=== PATIENT | female | born 1960 | race Caucasian/White ===

== ENCOUNTER 2017-09-29 07:43 | Inpatient (IN) | payer OTHER ==
[~2017-09-29] VITALS: Ht 162.6 cm; Wt 94.0 kg
[~2017-09-29 07:43] MED LIST: ESTR2; ESTR2 PO; HYDR1TAB94 PO; IRON150C PO; LEVSOD50 PO; NAPR500 PO; OXYACE5T PO; PROM25 PO
[2017-09-29 08:28] LABS: BASOPHILS ABSOLUTE AUTO 0.02 K/mm3 (0.00-0.23); BASOPHILS PERCENT AUTO 0 % (0-2); EOSINOPHILS PERCENT AUTO 0 % (0-6); Hematocrit 38.8 % (33.0-51.0); IMMATURE GRAN ABSOLUTE AUTO 0.02 K/mm3 (0.00-0.10); IMMATURE GRAN PERCENT AUTO 0 % (0-1); LYMPHOCYTES ABSOLUTE AUTO 0.77 K/mm3 (0.84-5.20); LYMPHOCYTES PERCENT AUTO 12 % (21-46); MONOCYTES ABSOLUTE AUTO 0.66 K/mm3 (0.16-1.47); MONOCYTES PERCENT AUTO 11 % (4-13); Mean Corpuscular HGB 27.3 pg (26.0-34.0); Mean Corpuscular HGB Conc 33.5 g/dL (31.5-36.5); Mean Corpuscular Volume 82 fL (80-100); NEUTROPHILS ABSOLUTE AUTO 4.78 K/mm3 (1.96-9.15); NEUTROPHILS PERCENT AUTO 77 % (41-73); Platelet Count 302 K/mm3 (150-400); RDW Coefficient Variation 12.9 % (11.7-14.2); RDW Standard Deviation 38.8 fL (35.1-46.3); Red Blood Cell Count 4.76 M/mm3 (3.80-5.20); White Blood Cell Count 6.25 K/mm3 (4.00-11.30)
[2017-09-29 08:53] LABS: Alanine Aminotransfer (ALT/SGP 27 U/L (12-78); Albumin, Blood 3.4 g/dL (3.4-5.0); Albumin/Globulin Ratio 0.7 (0.8-1.8); Alk Phos 70 U/L (50-136); Anion Gap 8 mmol/L (6-16); Aspartate Aminotrans (AST/SGOT 17 U/L (12-37); Bilirubin, Total 0.5 mg/dL (0.1-1.0); Blood Urea Nitrogen 7 mg/dL (8-24); Bun/Creatinine Ratio 12.8 (12.0-20.0); CO2, Blood 26 mmol/L (21-32); Calcium, Blood 8.8 mg/dL (8.5-10.1); Chloride, Blood 100 mmol/L (98-108); Creatinine, Blood 0.55 mg/dL (0.40-1.00); Globulin, Blood 5.2 g/dL (2.2-4.0); Glomerular Filtration Rate >60 (60-); Glucose, Blood 147 mg/dL (70-99); Potassium, Blood 3.4 mmol/L (3.5-5.5); Sodium, Blood 134 mmol/L (136-145); Total Protein, Blood 8.6 g/dL (6.4-8.2); Troponin I <0.015 ng/mL (0.000-0.040)
[2017-09-29 20:55] LABS: Adenovirus Not Detected (NOT DETECT); Coronavirus 229E Not Detected (NOT DETECT); Coronavirus HKU1 Not Detected (NOT DETECT); Coronavirus NL63 Not Detected (NOT DETECT)
[2017-09-29 20:56] LABS: Bordetella pertussis Not Detected (NOT DETECT); Chlamydophila pneumoniae Not Detected (NOT DETECT); Coronavirus OC43 Not Detected (NOT DETECT); Human Metapneumovirus Not Detected (NOT DETECT); Human Rhinovirus/Enterovirus Not Detected (NOT DETECT); Influenza A/2009-H1 Not Detected (NOT DETECT); Influenza A/H1 Not Detected (NOT DETECT); Influenza A/H3 Not Detected (NOT DETECT); Influenza B Not Detected (NOT DETECT); Mycoplasma pneumoniae Not Detected (NOT DETECT); Parainfluenza Virus 1 Not Detected (NOT DETECT); Parainfluenza Virus 2 Not Detected (NOT DETECT); Parainfluenza Virus 3 Not Detected (NOT DETECT); Parainfluenza Virus 4 Not Detected (NOT DETECT); Respiratory Syncytial Virus Not Detected (NOT DETECT)
[2017-09-30 02:55] LABS: Influenza A Not Detected (NOT DETECT)
[2017-09-30 05:25] LABS: BASOPHILS ABSOLUTE AUTO 0.04 K/mm3 (0.00-0.23); BASOPHILS PERCENT AUTO 1 % (0-2); EOSINOPHILS ABSOLUTE AUTO 0.02 K/mm3 (0.00-0.68); EOSINOPHILS PERCENT AUTO 0 % (0-6); Hematocrit 35.7 % (33.0-51.0); Hemoglobin 11.8 g/dL (11.5-16.0); IMMATURE GRAN ABSOLUTE AUTO 0.09 K/mm3 (0.00-0.10); IMMATURE GRAN PERCENT AUTO 1 % (0-1); LYMPHOCYTES ABSOLUTE AUTO 0.93 K/mm3 (0.84-5.20); LYMPHOCYTES PERCENT AUTO 11 % (21-46); MONOCYTES ABSOLUTE AUTO 1.12 K/mm3 (0.16-1.47); MONOCYTES PERCENT AUTO 14 % (4-13); Mean Corpuscular HGB 27.4 pg (26.0-34.0); Mean Corpuscular HGB Conc 33.1 g/dL (31.5-36.5); Mean Corpuscular Volume 83 fL (80-100); Mean Platelet Volume 10.9 fL (9.1-12.4); NEUTROPHILS ABSOLUTE AUTO 6.01 K/mm3 (1.96-9.15); NEUTROPHILS PERCENT AUTO 73 % (41-73); Platelet Count 301 K/mm3 (150-400); RDW Coefficient Variation 13.2 % (11.7-14.2); RDW Standard Deviation 39.8 fL (35.1-46.3); White Blood Cell Count 8.21 K/mm3 (4.00-11.30)
[2017-09-30 05:54] LABS: Anion Gap 9 mmol/L (6-16); Blood Urea Nitrogen 4 mg/dL (8-24); CO2, Blood 23 mmol/L (21-32); Calcium, Blood 7.9 mg/dL (8.5-10.1); Chloride, Blood 101 mmol/L (98-108); Creatinine, Blood 0.44 mg/dL (0.40-1.00); Glomerular Filtration Rate >60 (60-); Glucose, Blood 158 mg/dL (70-99); Potassium, Blood 3.4 mmol/L (3.5-5.5); Sodium, Blood 133 mmol/L (136-145)
[2017-10-01] MEDS ORDERED: HYDROCODONE-HOMA5 ML PO (08:39)
[2017-10-01] MEDS ORDERED: IBUP600 PO (08:39)
== END 2017-10-01 10:42 | disposition home or self-care (01) | DRG 194 ==
LOC: ER 07:43 → MEDS 07:44 → ENPENDDIS 10-01 08:29 → MEDS 10-01 10:42
PROVIDERS: Emergency Medicine; Family Medicine
PROC: 3E0234Z Introduction of Serum, Toxoid and Vaccine into Muscle, Percutaneous Approach (ICD-10-PCS; principal; 2017-09-29)
DX: J18.9 Pneumonia, unspecified organism (principal); E87.1 Hypo-osmolality and hyponatremia; E66.01 Morbid (severe) obesity due to excess calories; E03.9 Hypothyroidism, unspecified; I10 Essential (primary) hypertension; R09.02 Hypoxemia; Z23 Encounter for immunization; M17.0 Bilateral primary osteoarthritis of knee; Z68.35 Body mass index [BMI] 35.0-35.9, adult
CPT/HCPCS: 36415; 71046; 71260; 80048; 80053; 83880; 84443; 84484; 85025; 87070; 87077; 87081; 87185; 87205; 87486; 87581; 87633; 87798; 93005; 93010; 94640; 94644; 94760; 99285; J0456; J0696; J7042; J7050; Q9967

== ENCOUNTER 2024-07-15 07:56 | Day surgery (SDC) | payer BC ==
[~2024-07-15] VITALS: Ht 161 cm; Wt 101.6 kg
[2024-07-15] VITALS (16 sets, daily range): BP systolic 103–143; BP diastolic 59–83
[~2024-07-15 07:56] MED LIST changes: +EUTHYROX50 MCG PO; +HYDROCODONE-HOMA5 ML PO; +IBUP600 PO; +OLMESARTAN-HCT1 EAC3 PO
[2024-07-15] MEDS ORDERED: Acetaminophen 500 MG Tab PO SCH ×2 (09:35→16:00)
[2024-07-15] MEDS ORDERED: Ropivacaine 0.5% HCl/Pf 123.125 MG,EPINEPHrine HCL 0.25 MG,Ketorolac Tromethamine 15 MG... INFIL SCH (09:35)
[2024-07-15] MEDS ORDERED: Lactated Ringer's 1,000 ML IV SCH ×2 (09:35→11:30)
[2024-07-15] MEDS ORDERED: CeFAZolin Sodium 2,000 MG in NS 100 ML IV SCH ×2 (09:35→20:00)
[2024-07-15] MEDS ORDERED: Tranexamic Acid 1,000 MG in NS 100 ML IV SCH (09:35)
[2024-07-15] MEDS ORDERED: Chlorhexidine Mouth Care 15 ML UDC MT SCH (09:35)
[2024-07-15] MEDS ORDERED: OxyCODONE HCL 10 MG TABCR PO SCH (09:35)
--- NOTE | 2024-07-15 10:42 | NUR ---
History, Chart, Medications and Allergies reviewed before start of procedure. Patient up to Ambulate independently. Gait steady. Pre-Op teaching done. Pt verbalizes understanding. Patient confirms NPO status and agrees with scheduled surgery. Patient reports completing Chlorhexadine shower X5 prior to admission to hospital. Surgical site prepped with 2% Chlorhexidine cloth wipe. Lungs clear T/O to Auscultation. Patient States Post-Procedure ride home has been arranged.
[2024-07-15] MEDS ORDERED: Midazolam HCl 1MG / ML 2ML Vial IV ONE (10:55)
[2024-07-15] MEDS ORDERED: Ondansetron HCl 2 MG / ML 2ML Vial IV PRN (11:30)
[2024-07-15] MEDS ORDERED: HYDROmorphone HCl/Pf 1MG SYR IV PRN (11:30)
[2024-07-15] MEDS ORDERED: Magnesium Hydroxide Conc 10 ML UDC PO PRN (11:30)
[2024-07-15] MEDS ORDERED: Promethazine HCl 25 MG Tab PO PRN (11:30)
[2024-07-15] MEDS ORDERED: Metoclopramide HCl 5MG / ML 2ML Vial IV PRN (11:30)
[2024-07-15] MEDS ORDERED: FLU VACC TS2024-25(6MOS UP)/PF 45 MCG/0.5 ML SYRINGE IM SCH (11:35)
[2024-07-15] MEDS ORDERED: HYDROcodone 5-APAP 325 TAB PO PRN (11:35)
[2024-07-15] MEDS ORDERED: DiphenhydrAMINE HCL 25 MG Cap PO PRN (11:35)
[2024-07-15] MEDS ORDERED: Bisacodyl 10 MG Supp PR PRN (11:40)
[2024-07-15] MEDS ORDERED: propofoL 150 ML IV ONE (11:51)
[2024-07-15] MEDS ORDERED: Midazolam HCl 1MG / ML 2ML Vial ONE (11:52)
[2024-07-15] MEDS ORDERED: Ketorolac Tromethamine 15mg Vial IV SCH (12:00)
[2024-07-15] MEDS ORDERED: Ketorolac Tromethamine 30mg Vial ONE (13:24)
[2024-07-15] MEDS ORDERED: Phenylephrine HCl 10mg/ml 1 ml Vial ONE (13:24)
[2024-07-15] MEDS ORDERED: ePHEDrine Sulfate 50 MG/ML 1ML Injection ONE (13:37)
[2024-07-15] MEDS ORDERED: FentaNYL Citrate 50 MCG/ML 2 ML Injection ONE (14:14)
[2024-07-15] MEDS ORDERED: HYDROmorphone HCl/Pf 1MG SYR ONE (14:19)
[2024-07-15] MEDS ORDERED: Acetaminophen 325 MG TABLET PO SCH (18:00)
--- NOTE | 2024-07-15 19:13 | NUR ---
SHIFT SUMMAROY POD0 L TKA, A/OX4, VSS, TOLERATING PO, PAIN WELL MANAGED, NO VOID THIS SHIFT BUT WAS STRAIGHT CATHED IN PACU, SHE DID NOT GET OOB BUT STILL HAD SOME RESIDUAL N/T IN HER FEET. DISCUSSED PLAN FOR TONIGHT AND THE MORNING AND PATIENT AGREEABLE TO IT. NO ACUTE EVENTS THIS SHIFT, CALL LIGHT IN REACH.
[2024-07-15] MEDS ORDERED: Docusate Sodium 100 MG Cap PO SCH (21:00)
[2024-07-16 00:04] VITALS: BP 125/75
[2024-07-16 04:14] VITALS: BP 118/76
[2024-07-16 05:16] LABS: BASOPHILS ABSOLUTE AUTO 0.04 K/mm3 (0.00-0.23); BASOPHILS PERCENT AUTO 1 % (0-2); EOSINOPHILS ABSOLUTE AUTO 0.08 K/mm3 (0.00-0.68); EOSINOPHILS PERCENT AUTO 1 % (0-6); Hematocrit 31.9 % (33.0-51.0); Hemoglobin 10.6 g/dL (11.5-16.0); IMMATURE GRAN ABSOLUTE AUTO 0.02 K/mm3 (0.00-0.10); IMMATURE GRAN PERCENT AUTO 0 % (0-1); LYMPHOCYTES PERCENT AUTO 16 % (21-46); MONOCYTES ABSOLUTE AUTO 0.56 K/mm3 (0.16-1.47); MONOCYTES PERCENT AUTO 8 % (4-13); Mean Corpuscular HGB Conc 33.2 g/dL (31.5-36.5); Mean Corpuscular Volume 87 fL (80-100); NEUTROPHILS ABSOLUTE AUTO 5.22 K/mm3 (1.96-9.15); NEUTROPHILS PERCENT AUTO 74 % (41-73); Platelet Count 216 K/mm3 (150-400); RDW Coefficient Variation 13.4 % (11.7-14.2); RDW Standard Deviation 42.8 fL (35.1-46.3); Red Blood Cell Count 3.65 M/mm3 (3.80-5.20); White Blood Cell Count 7.02 K/mm3 (4.00-11.30)
--- NOTE | 2024-07-16 05:19 | NUR ---
SHIFT SUMMARY POD 1 L TKA. NO ACUTE CHANGES OVERNIGHT. VSS. TOLERATING ORALS. AMBULATES USING FWW c GB & SBA. VOIDING. PT REPORTS INCREASED PAIN, POLAR PACK IN USE, MEDICATED PER EMAR. IV REMOVED R/T INFILTRATION, PT DENIES NEW IV PLACEMENT AT THIS TIME. PAYAL WRAP & AQUACEL C/D/I. ANTICIPATED TO WORK c PHYSCIAL THERAPY THEN DISCHARGE HOME LATER TODAY. PT DRESSED & RESTING IN CHAIR. CALL LIGHT IN REACH, WILL REPORT TO DAY RN.
[2024-07-16 05:44] LABS: Bun/Creatinine Ratio 20.9 (12.0-20.0); Calcium, Blood 8.3 mg/dL (8.5-10.1); Creatinine, Blood 0.72 mg/dL (0.40-1.00); Potassium, Blood 3.5 mmol/L (3.5-5.5)
[2024-07-16] MEDS ORDERED: Levothyroxine Sodium 0.05 MG Tab PO SCH (06:00)
[2024-07-16 07:06] VITALS: BP 137/75
[2024-07-16] MEDS ORDERED: Aspirin 81 MG Chew PO SCH (09:00)
[2024-07-16] MEDS ORDERED: Losartan Potassium 50 MG Tab PO SCH (09:00)
[2024-07-16] MEDS ORDERED: HydroCHLOROthiazide 25 mg Tab PO SCH (09:00)
--- NOTE | 2024-07-16 09:52 | NUR ---
Pt. is sitting up and displays evidence of prepping to discharge. A friend and spouse are present at bedside. Facilitated a life review and prayed for the Pt. before discharge. pt. and family verbalize gratitude for the spiritual care visit.
[2024-07-16 10:16] VITALS: BP 126/85
--- NOTE | 2024-07-16 11:12 | NUR ---
DISCHARGE NOTE PT IS POD1 FOR L TKA. PT IS TOLERATING REG DIET, VOIDING, AMBULATING 1 ASST W/ FWW AND GB. PAIN TOLERABLE W/ SCHEDULED AND PRN PAIN MEDS PER EMAR. DRESSING C/D/I. PT SENT HOME W/ DRESSING CHANGES. DISCHARGE INSTRUCTIONS REVIEWED W/ PT, COPY GIVEN. PT SENT HOME TO [facility]IVATE R[facility] HOME VIA WC IN STABLE CONDITION W/ PERSONAL BELONGINGS.
== END 2024-07-16 10:19 | disposition home or self-care (01) ==
LOC: ORSCMMR 07:56 → ORD 10:00 → SURS 14:33 → ORSCMMR 07-16 10:19
PROVIDERS: Orthopaedic Surgery
PROC: 0SRD0JA Replacement of Left Knee Joint with Synthetic Substitute, Uncemented, Open Approach (ICD-10-PCS; principal; 2024-07-15 10:00)
DX: M17.12 Unilateral primary osteoarthritis, left knee (principal); I10 Essential (primary) hypertension; E03.9 Hypothyroidism, unspecified; Z79.899 Other long term (current) drug therapy
CPT/HCPCS: 36415; 73560-LT; 80048; 85025; 97110; 97116; 97162; 97530; A9270; C1713; C1776; J0171; J0690; J0735; J1171; J1885; J2250; J2371; J2704; J2795; J3010; J7120

== ENCOUNTER 2024-08-26 05:59 | Day surgery (SDC) | payer BC ==
[2024-08-26] VITALS (7 sets, daily range): BP systolic 91–132; BP diastolic 71–86
[~2024-08-26] VITALS: Ht 162.6 cm; Wt 99.8 kg
[~2024-08-26 05:59] MED LIST changes: +Aspir 8181 MG PO; +HYDROCODONE-AC1 EA19 PO; +MUPIROCIN1 G1 TOP; +TRAM50 PO
[2024-08-26] MEDS ORDERED: Lactated Ringer's 1,000 ML IV SCH (06:20)
[2024-08-26] MEDS ORDERED: Dexamethasone Sod Phos 10 MG/ML 1ML VIAL ONE (06:56)
[2024-08-26] MEDS ORDERED: propofoL 20 ML IV ONE (06:56)
[2024-08-26] MEDS ORDERED: Midazolam HCl 1MG / ML 2ML Vial ONE (06:56)
[2024-08-26] MEDS ORDERED: FentaNYL Citrate 50 MCG/ML 2 ML Injection ONE ×2 (06:56→07:58)
[2024-08-26] MEDS ORDERED: Ondansetron HCl 2 MG / ML 2ML Vial ONE (06:56)
[2024-08-26] MEDS ORDERED: Ketorolac Tromethamine 30mg Vial ONE (06:56)
[2024-08-26] MEDS ORDERED: OxyCODONE HCL 5 MG TAB PO PRN (08:20)
--- NOTE | 2024-08-26 08:54 | NUR ---
0755 REPORT RECEIVED FROM ROMEO EDMONDSON AND DR BALBUENA. VSS. PT ON RA. PT A&OX4. PT ABLE TO REPOSITION SELF IN BED. PT REQUESTING PO FOOD AND FLUIDS AND TOLERATING THEM WELL. PT REPORTS 10/10 PAIN TO L KNEE. PT MEDICATED FOR PAIN PER DR LEONARD. SEE EMAR/FLOWSHEET. PT DENIES NAUSEA OR OTHER DISCOMFORTS. PT HAS L KNEE PROPPED ON PILLOW WITH ICE PACK IN PLACE.
--- NOTE | 2024-08-26 08:57 | NUR ---
Patient up to Ambulate independently. Gait steady. VSS AND CONSISTENT WITH PT BASELINE. PT REPORTS FEELING MUCH BETTER NOW PAIN AT 2/10. PT DENIES OTHER DISCOMFORTS AND VERBALIZES READINESS TO GO HOME. Discharge instructions reviewed with patient. Patient verbalizes understanding. Copy given to patient to take home. Patient States Post-Procedure ride home has been arranged. Discharged via wheelchair to private car for ride home. PT BELONGINGS RETURNED TO PT.
== END 2024-08-26 08:55 | disposition home or self-care (01) ==
LOC: ORSCMMR 05:59 → ORD 07:30 → ORSCMMR 08:55
PROVIDERS: Orthopaedic Surgery
PROC: 0SNDXZZ Release Left Knee Joint, External Approach (ICD-10-PCS; principal; 2024-08-26 07:30)
DX: M24.662 Ankylosis, left knee (principal); I10 Essential (primary) hypertension; G47.33 Obstructive sleep apnea (adult) (pediatric); E03.9 Hypothyroidism, unspecified; E66.9 Obesity, unspecified; Z68.37 Body mass index [BMI] 37.0-37.9, adult; Z79.899 Other long term (current) drug therapy; Z79.82 Long term (current) use of aspirin
CPT/HCPCS: A9270; J1100; J1885; J2250; J2405; J2704; J3010; J7120